=== PATIENT | female | born 1995 | race American Indian/Alaskan Native ===

== ENCOUNTER 2017-03-09 14:03 | Emergency (ER) | payer OTHER ==
[2017-03-09 16:05] VITALS: BP 92/52
--- NOTE | 2017-03-09 16:07 | Emergency Department Report ---
Entered by JACOBY BRAUN, acting as scribe for JENNIFER ARGUELLO NP. Chief Complaint: Abdominal Pain Stated Complaint: ABDOMINAL PAIN 7 WEEKS Time Seen by Provider: 03/09/17 16:00 - HPI History of Present Illness: 22 y/o female presents with abd pain that started last week and has worsened since onset. Pt denies vag bleeding or spotting. Pt reports she is 7 weeks . Pt notes she has visited an OB last week but denies ever receiving an US. G1 - ROS Review of Systems: + suprapubic abd pain -vag bleeding -spotting - Exam Vital Signs: Vital Signs 03/09/17 16:02 Temperature 97.9 F Pulse Rate 59 L Respiratory 18 Rate Blood Pressure 92/52 O2 Sat by Pulse 100 Oximetry Physical Exam: abd: suprapubic TTP, no rebound, no guarding. MSE screening note: Focused history and physical exam performed. Due to findings the following was ordered: ED Disposition for MSE Condition: Stable This documentation as recorded by the scribe,JACOBY BRAUN,accurately reflects the service I personally performed and the decisions made by JOS judd TRACY M , ALEX.
[2017-03-09 16:31] LABS: Basophils % (Auto) 0.6 % (0.0-1.8); Eosinophils % (Auto) 0.9 % (0.0-4.3); Hematocrit 40.9 % (30.3-42.9); Hemoglobin 13.2 gm/dl (10.1-14.3); Mean Corpuscular HGB Conc 32 % (30-34); Mean Corpuscular Hemoglobin 27 pg (28-32); Mean Corpuscular Volume 83 fl (79-97); Platelet Count 176 K/mm3 (140-440); Red Blood Count 4.95 M/mm3 (3.65-5.03); Red Cell Distribution Width 14.8 % (13.2-15.2); White Blood Count 6.6 K/mm3 (4.5-11.0)
[2017-03-09 16:56] LABS: Bilirubin,Urine NEG (Negative); Blood,Urine NEG (Negative); Ketones,Urine NEG (Negative); Leukocyte Esterase,Urine NEG (Negative); Nitrite,Urine NEG (Negative); Protein,Urine <15 mg/dL mg/dL (Negative); Urobilinogen,Urine < 2.0 mg/dL (<2.0)
[2017-03-09 17:11] LABS: Alanine Aminotransferase 25 units/L (7-56); Albumin/Globulin Ratio 1.1 %; Alkaline Phosphatase 48 units/L (35-129); Anion Gap 18 mmol/L; BUN/Creatinine Ratio 11.66; Blood Urea Nitrogen 7 mg/dL (7-17); Calcium 9.1 mg/dL (8.4-10.2); Carbon Dioxide 23 mmol/L (22-30); Chloride 98.7 mmol/L (98-107); Glucose 122 mg/dL (65-100); Potassium 4.3 mmol/L (3.6-5.0); Sodium 135 mmol/L (137-145); Total Protein 7.5 g/dL (6.3-8.2)
--- NOTE | 2017-03-09 19:21 | Ultrasound Report ---
FINAL REPORT PROCEDURE: US OB \T\lt; = 14 WEEKS FETUS TECHNIQUE: Real-time transabdominal and transvaginal sonography of the uterus, placenta, amniotic fluid, adnexa, and fetus was performed with image documentation. Measurements were obtained to determine age/size. M-mode Doppler was used to document heartbeat. CPT 91655 and 80529 HISTORY: Vaginal bleeding COMPARISON: No prior studies are available for comparison. FINDINGS: ADDITIONAL GESTATION: None. Single live intrauterine is seen with a crown-rump length of 3.1 millimeters corresponding to 5 weeks 6 days gestational age. Mean sac diameter is 2.0 cm corresponding to 7 weeks 0 days gestational age. heart rate is 98 beats per minute. Yolk sac is seen. Right ovary measures 3.6 x 1.6 x 1.4 cm. Left ovary measures 4.0 x 2.2 x 2.6 cm. Left ovary has a complex 2.4 cm cyst. Trace free pelvic fluid is seen. IMPRESSION: 1. Single live intrauterine gestation at approximately 6 weeks 3 days. 2. EDC by US October 30, 2017 3. Complete anatomic survey at 18-20 weeks suggested.
--- NOTE | 2017-03-09 19:22 | Ultrasound Report ---
FINAL REPORT PROCEDURE: US OB TRANSVAGINAL TECHNIQUE: Real-time transabdominal and transvaginal sonography of the uterus, placenta, amniotic fluid, adnexa, and fetus was performed with image documentation. Measurements were obtained to determine age/size. M-mode Doppler was used to document heartbeat. CPT 37562 and 28406 HISTORY: pain COMPARISON: No prior studies are available for comparison. FINDINGS: ADDITIONAL GESTATION: None. Single live intrauterine is seen with a crown-rump length of 3.1 millimeters corresponding to 5 weeks 6 days gestational age. Mean sac diameter is 2.0 cm corresponding to 7 weeks 0 days gestational age. heart rate is 98 beats per minute. Yolk sac is seen. Right ovary measures 3.6 x 1.6 x 1.4 cm. Left ovary measures 4.0 x 2.2 x 2.6 cm. Left ovary has a complex 2.4 cm cyst. Trace free pelvic fluid is seen. IMPRESSION: 1. Single live intrauterine gestation at approximately 6 weeks 3 days. 2. EDC by US October 30, 2017 3. Complete anatomic survey at 18-20 weeks suggested.
--- NOTE | 2017-03-10 01:15 | Emergency Department Report ---
ED Abdominal Pain HPI - General Chief Complaint: Abdominal Pain Stated Complaint: ABDOMINAL PAIN 7 WEEKS Time Seen by Provider: 03/09/17 16:00 Source: patient, family Mode of arrival: Ambulatory Limitations: Language Barrier - History of Present Illness MD Complaint: abdominal pain -: week(s) Location: suprapubic Severity scale (0 -10): 4 Quality: cramping Improves With: vomiting Associated Symptoms: nausea, vomiting. denies: diarrhea, fever, chills - Related Data Previous Rx's Medication Instructions Recorded Last Taken Type Ondansetron [Zofran Odt] 4 mg PO Q4-6H PRN #14 tab.rapdis 03/10/17 Unknown Rx Allergies Allergy/AdvReac Type Severity Reaction Status Date / Time No Known Allergies Allergy Unverified 03/09/17 16:02 ED Review of Systems ROS: Stated complaint: ABDOMINAL PAIN 7 WEEKS Other details as noted in HPI Comment: All other systems reviewed and negative Constitutional: denies: chills, fever Respiratory: denies: cough, shortness of breath Cardiovascular: denies: chest pain, palpitations Gastrointestinal: abdominal pain, nausea. denies: vomiting Genitourinary: denies: dysuria Musculoskeletal: denies: back pain Neurological: denies: headache, paresthesias ED Past Medical Hx - Past Medical History Previous Medical History?: No - Surgical History Past Surgical History?: No - Social History Smoking Status: Never Smoker Substance Use Type: None - Medications Home Medications: Home Medications Medication Instructions Recorded Confirmed Last Taken Type Ondansetron [Zofran Odt] 4 mg PO Q4-6H PRN #14 tab.rapdis 03/10/17 Unknown Rx ED Physical Exam - General Limitations: No Limitations General appearance: alert, in no apparent distress - Eye Eye exam: Present: normal appearance Pupils: Present: normal accommodation - ENT ENT exam: Present: normal exam - Neck Neck exam: Present: normal inspection - Respiratory Respiratory exam: Present: normal lung sounds bilaterally. Absent: respiratory distress, wheezes, rales - Cardiovascular Cardiovascular Exam: Present: regular rate, normal rhythm, normal heart sounds - GI/Abdominal GI/Abdominal exam: Present: soft. Absent: distended, tenderness, guarding, rebound, rigid, mass, pulsatile mass - Extremities Exam Extremities exam: Present: normal inspection - Back Exam Back exam: Present: normal inspection. Absent: CVA tenderness (R), CVA tenderness (L) - Neurological Exam Neurological exam: Present: alert, oriented X3, CN II-XII intact - Skin Skin exam: Present: warm, dry, normal color ED Course Vital Signs 03/09/17 16:02 Temperature 97.9 F Pulse Rate 59 L Respiratory 18 Rate Blood Pressure 92/52 O2 Sat by Pulse 100 Oximetry ED Medical Decision Making - Lab Data Result diagrams: 03/09/17 16:19 03/09/17 16:19 Critical care attestation.: If time is entered above; I have spent that time in minutes in the direct care of this critically ill patient, excluding procedure time. ED Disposition Clinical Impression: Abdominal pain affecting Disposition: DC-01 TO HOME OR SELFCARE Is pt being admited?: No Does the pt Need Aspirin: No Condition: Stable Instructions: Abdominal Pain (ED) Referrals: PRIMARY CARE, [Primary Care Provider] - 3-5 Days
== END 2017-03-10 01:28 | disposition home or self-care (01) ==
LOC: ED 14:03
DX: O26.891 Other specified pregnancy related conditions, first trimester (principal); R10.9 Unspecified abdominal pain; Z3A.01 Less than 8 weeks gestation of pregnancy
CPT/HCPCS: 36415; 76801; 76817; 80053; 81001; 84702; 85025; 86900; 86901